=== PATIENT | female | born 1990 | race Hispanic/Latino ===

== ENCOUNTER 2017-05-12 14:47 | Observation (INO) | payer MEDICAID ==
[~2017-05-12 14:47] MED LIST: ACET1TAB12 PO; DOCU240C80 PO; METF500T6 PO; MO8B PO; PREN-18 PO
[2017-05-12 15:25] LABS: APPEARANCE,URINE Clear (CLEAR); BILIRUBIN,URINE Negative (NEGATIVE); COLOR,URINE Yellow (YELLOW); GLUCOSE, URINE (UA) 500 mg/dL (NEGATIVE); KETONES,URINE Negative (NEGATIVE); LEUKOCYTE ESTERASE ,URINE Negative (NEGATIVE); NITRATE,URINE Negative (NEGATIVE); OCCULT BLOOD,URINE Negative (NEGATIVE); PH,URINE 6.5 (5.0-8.0); PROTEIN,URINE Negative (NEGATIVE)
[2017-05-12 15:32] LABS: BACTERIA,URINE Rare /HPF (None Seen); RBC,URINE 0-1 /HPF (0-1); WBC,URINE None Seen /HPF (0-1)
== END 2017-05-12 16:58 | disposition home or self-care (01) ==
LOC: LDH 14:47
DX: O36.8130 Decreased fetal movements, third trimester, not applicable or unspecified (principal); Z3A.33 33 weeks gestation of pregnancy
CPT/HCPCS: 81001; 82948; G0378 ×3

== ENCOUNTER 2017-06-06 16:00 | Inpatient (IN) | payer MEDICAID ==
[~2017-06-06] VITALS: Ht 160 cm; Wt 91.2 kg
[2017-06-07 13:40] LABS: HEMATOCRIT 37.2 % (36-48); MEAN CORPUSCULAR HEMOGLOBIN 28.7 pg (27.0-33.0); MEAN CORPUSCULAR VOLUME 84.5 fL (79-99); PLATELET COUNT (AUTO) 165 K/uL (130-400); RED CELL DISTRIBUTION WIDTH 18.1 % (11.0-15.5); WHITE BLOOD COUNT (AUTO) 6.8 K/uL (4.8-10.8)
[2017-06-08] VITALS (16 sets, daily range): BP systolic 138–153; BP diastolic 68–92
[2017-06-08] MEDS ORDERED: CALDOLOR 800MG+NS 250ML 250 ML IV PRN (06:00)
[2017-06-08] MEDS ORDERED: LACTATED RINGERS 1000ML 1,000 ML IV SCH (06:00)
[2017-06-08] MEDS ORDERED: CEFAZOLIN SODIUM 1 GM VIAL IVP PRN (06:00)
[2017-06-08] MEDS ORDERED: LACTATED RINGERS 1000ML 1,000 ML IV ONE (06:38)
[2017-06-08 06:57] LABS: CREATININE 0.8 mg/dL (0.5-1.5); POTASSIUM 4.2 mmol/L (3.5-5.1)
[2017-06-08 07:02] LABS: ALBUMIN 2.4 g/dL (3.5-5.0); BILIRUBIN,TOTAL 0.3 mg/dL (0.2-1.0); TOTAL PROTEIN, SERUM 7.1 g/dL (6.0-8.3); URIC ACID 7.1 mg/dL (2.6-7.2)
[2017-06-08 07:03] LABS: INR 0.89 (0.85-1.15); PARTIAL THROMBOPLASTIN TIME 30.2 SEC (26.3-35.5); PROTHROMBIN TIME 9.4 SEC (9.6-11.6)
[2017-06-08] MEDS ORDERED: OXYTOCIN 10 USP UNITS/ML ONE (07:22)
[2017-06-08] MEDS ORDERED: DURAMORPH PF1 MG/ML 10ML AMP IV ONE (08:31)
[2017-06-08] MEDS ORDERED: CEFAZOLIN SODIUM 1 GM VIAL IVP ONE (08:40)
[2017-06-08] MEDS ORDERED: EPHEDRINE-NS PF 50MG/5ML SYRINGE IV ONE (08:41)
[2017-06-08] MEDS ORDERED: MIDAZOLAM HCL 1 MG/ML 2ML VIAL ONE ×2 (08:56→09:31)
[2017-06-08] MEDS ORDERED: FENTANYL CITRATE PF 50 MCG/1 ML 2ML VIAL ONE (08:56)
[2017-06-08] MEDS ORDERED: PHENYLEPHRINE HCL 10 MG/ML 1ML VIAL IV ONE (09:15)
[2017-06-08] MEDS ORDERED: EPINEPHRINE 1 MG/ML AMPULE ONE (09:15)
[2017-06-08] MEDS ORDERED: DEXAMETHASONE SOD PHOSPHATE 10MG/ML 1ML VIAL ONE (09:15)
[2017-06-08 09:19] LABS: HEPATITIS Bs ANTIGEN SCREEN P Negative (Negative)
[2017-06-08] MEDS ORDERED: OXYTOCIN-LR 20 UNITS/1000 ML 1,000 ML IV PRN (09:42)
[2017-06-08] MEDS ORDERED: LANOLIN 30GM OINTMENT TP PRN (09:45)
[2017-06-08] MEDS ORDERED: PROMETHAZINE HCL 25 MG/ML 1ML AMPULE IM PRN ×2 (09:45→13:00)
[2017-06-08] MEDS ORDERED: MEPERIDINE-PF 75 MG/ML SYG IM PRN (09:45)
[2017-06-08] MEDS ORDERED: BISACODYL 10 MG SUPP.RECT RC PRN (09:45)
[2017-06-08] MEDS ORDERED: SODIUM CHLORIDE 0.9% 10 ML VIAL IVP PRN (09:45)
[2017-06-08] MEDS ORDERED: MEPERIDINE-PF 25 MG/ML SYG ONE (10:28)
[2017-06-08] MEDS: ACETAMINOPHEN-CODEINE 300/30MG TAB PO PRN (11:37)
[2017-06-08] MEDS ORDERED: ONDANSETRON HCL MDV 20ML 2 MG/ML VIAL ONE (12:50)
[2017-06-08] MEDS ORDERED: MORPHINE SULFATE 4 MG/1ML SYG ONE (12:51)
[2017-06-08] MEDS ORDERED: DiphenhydrAMINE HCL 50 MG/ML VIAL IVP PRN (13:00)
[2017-06-08] MEDS ORDERED: NALOXONE HCL 0.4 MG/1 ML ML IVP PRN ×2 (13:00)
[2017-06-08] MEDS ORDERED: ONDANSETRON HCL 4 MG/2 ML VIAL IVP PRN ×2 (13:00)
[2017-06-08] MEDS ORDERED: HYDROCODONE/ACETAMINOPHEN 5/325 MG TAB PO PRN (13:00)
[2017-06-08] MEDS ORDERED: ONDANSETRON HCL 4 MG/2 ML 8 MG in SODIUM CHLORIDE 0.9% 50 ML IVP NR (13:00)
[2017-06-08] MEDS ORDERED: MORPHINE SULFATE 2 MG/ML 1ML SYG IVP PRN (13:00)
[2017-06-08] MEDS ORDERED: METOCLOPRAMIDE 10 MG/2 ML VIAL IVP PRN (13:00)
[2017-06-08] MEDS ORDERED: EPHEDRINE SULFATE 50 MG/ML AMPULE IVP PRN (13:00)
[2017-06-08] MEDS ORDERED: CEFAZOLIN 2GM / 50 ML 50 ML IV SCH (16:45)
[2017-06-08] MEDS: DEXTROSE 5 %-0.45 % NACL 1,000 ML IV PRN (18:30)
[2017-06-08] MEDS: CALDOLOR 800MG+NS 250ML 250 ML IV SCH (18:30)
[2017-06-08] MEDS: CEFAZOLIN SODIUM 1 GM VIAL IVP SCH (20:17)
[2017-06-09] MEDS: DEXTROSE 5 %-0.45 % NACL 1,000 ML IV PRN (01:47)
[2017-06-09] MEDS: CALDOLOR 800MG+NS 250ML 250 ML IV SCH (01:47)
[2017-06-09 03:33] VITALS: BP 140/80
[2017-06-09] MEDS: CEFAZOLIN SODIUM 1 GM VIAL IVP SCH (03:54)
[2017-06-09 06:51] LABS: HEMATOCRIT 26.7 % (36-48); MEAN CORPUSCULAR HEMOGLOBIN 30.1 pg (27.0-33.0); MEAN CORPUSCULAR HGB CONC 35.3 g/dL (32.0-36.0); MEAN CORPUSCULAR VOLUME 85.3 fL (79-99); PLATELET COUNT (AUTO) 150 K/uL (130-400); RED BLOOD CELL COUNT(AUTO) 3.13 MIL/uL (4.00-5.50); RED CELL DISTRIBUTION WIDTH 18.2 % (11.0-15.5); WHITE BLOOD COUNT (AUTO) 9.9 K/uL (4.8-10.8)
[2017-06-09 07:28] VITALS: BP 143/94
[2017-06-09] MEDS: SIMETHICONE 80 MG TAB.CHEW PO PRN ×4 (09:44→20:53)
[2017-06-09] MEDS: DOCUSATE SODIUM 100 MG CAP PO SCH ×2 (09:45→20:53)
[2017-06-09] MEDS: IBUPROFEN 800 MG TAB PO SCH ×2 (09:45→17:24)
[2017-06-09 11:56] VITALS: BP 138/79
[2017-06-09] MEDS: HYDROCODONE/ACETAMINOPHEN 5/325 MG TAB PO PRN ×2 (12:09→20:53)
[2017-06-09] MEDS: MEASLES/MUMPS/RUBELLA VACCINE, LIVE 0.5 ML/VIAL SQ SCH (12:10)
[2017-06-09] MEDS ORDERED: DIPH,PERTUSS(ACELL),TET VAC/PF 0.5 ML VIAL IM ONE (13:00)
[2017-06-09 15:54] VITALS: BP 123/83
[2017-06-09 20:10] VITALS: BP 140/89
[2017-06-10 00:25] VITALS: BP 128/62
[2017-06-10] MEDS: ACETAMINOPHEN-CODEINE 300/30MG TAB PO PRN (00:29)
[2017-06-10] MEDS: IBUPROFEN 800 MG TAB PO SCH ×2 (02:03→09:44)
[2017-06-10 04:15] VITALS: BP 130/81
[2017-06-10 06:51] LABS: HEMATOCRIT 26.6 % (36-48); MEAN CORPUSCULAR HGB CONC 34.1 g/dL (32.0-36.0); MEAN CORPUSCULAR VOLUME 85.1 fL (79-99); PLATELET COUNT (AUTO) 166 K/uL (130-400); RED BLOOD CELL COUNT(AUTO) 3.12 MIL/uL (4.00-5.50); RED CELL DISTRIBUTION WIDTH 18.3 % (11.0-15.5); WHITE BLOOD COUNT (AUTO) 9.1 K/uL (4.8-10.8)
[2017-06-10 07:39] VITALS: BP 141/78
[2017-06-10] MEDS: MEASLES/MUMPS/RUBELLA VACCINE, LIVE 0.5 ML/VIAL SQ SCH (08:35)
[2017-06-10] MEDS: SIMETHICONE 80 MG TAB.CHEW PO PRN (08:53)
[2017-06-10] MEDS: DOCUSATE SODIUM 100 MG CAP PO SCH (08:53)
[2017-06-10 11:53] VITALS: BP 136/64
== END 2017-06-10 14:25 | disposition home or self-care (01) | DRG 540 ==
LOC: EDSTATUS 16:00 → LDH 06-08 05:43 → WSH 06-08 11:09
PROC: 10D00Z1 Extraction of Products of Conception, Low, Open Approach (ICD-10-PCS; 2017-06-08)
PROC: 3E0234Z Introduction of Serum, Toxoid and Vaccine into Muscle, Percutaneous Approach (ICD-10-PCS; 2017-06-08)
PROC: 3E0234Z Introduction of Serum, Toxoid and Vaccine into Muscle, Percutaneous Approach (ICD-10-PCS; 2017-06-08)
PROC: 0UB70ZZ Excision of Bilateral Fallopian Tubes, Open Approach (ICD-10-PCS; principal; 2017-06-08 08:00)
DX: O69.1XX0 Labor and delivery complicated by cord around neck, with compression, not applicable or unspecified (principal); O13.3 Gestational [pregnancy-induced] hypertension without significant proteinuria, third trimester; N83.8 Other noninflammatory disorders of ovary, fallopian tube and broad ligament; O34.211 Maternal care for low transverse scar from previous cesarean delivery; O24.424 Gestational diabetes mellitus in childbirth, insulin controlled; O99.824 Streptococcus B carrier state complicating childbirth; Z37.0 Single live birth; Z3A.37 37 weeks gestation of pregnancy; Z23 Encounter for immunization; Z30.2 Encounter for sterilization
CPT/HCPCS: 36415; 59510; 80053; 84550; 85027; 85384; 85610; 85730; 86592; 86850; 86900; 86901; 87340; 88302; 90707; 90715; A4218; A4344; A4351; A4606; J0171; J0690; J1100; J1200; J1741; J2175; J2250; J2270; J2274; J2370; J2590; J3010; J3490; J7120